=== PATIENT | female | born 1990 | race Caucasian/White ===

== ENCOUNTER 2022-08-16 19:22 | Inpatient (IN) | payer OTHER, MEDICAID, SELFPAY ==
[2022-08-16 17:43] VITALS: BMI 39.5
[2022-08-16 18:32] LABS: Hematocrit 35.7 % (37-47); Hemoglobin 11.1 g/dL (12.0-15.0); Mean Corp Hgb Conc 31.1 g/dL (32-36); Mean Corpuscular Hgb 24.9 pg (27.0-32.0); Mean Platelet Vol. 10.6 fl (6.2-12.0); Platelet Count 276 K/mm3 (150-450); RBC Distribution Width CV 15.3 % (11.6-14.6); RBC Distribution Width SD 43.8 fl (35.1-43.9); Red Blood Count 4.46 M/mm3 (4.2-5.4); White Blood Count 10.1 K/mm3 (4.4-11.0)
[2022-08-16 18:47] LABS: Protein, Urine (Random) < 6.0 mg/dL (<11.9)
[2022-08-16 18:57] LABS: AST(SGOT) 11 U/L (15-37); Alanine Aminotransfer ALT/SGPT 18 U/L (13-56); Creatinine, Serum 0.62 mg/dL (0.55-1.02); EST Glomerular Filtration Rate 119 mL/min (>60); Est Glom Filt Rate - Afr Amer 145 mL/min (>60); Estimated Creatinine Clearance 108.76 ml/min; Uric Acid 4.7 mg/dL (2.6-6.0)
--- NOTE | 2022-08-16 19:19 | PCM.HP.OB ---
HPI - General HPI Narrative MALIKA HOYOS, is a 32 F at 37.6 weeks who presents for elevated blood pressures in office today without diagnosis of hypertension. Patient denies any headache, vision changes, RUQ pain, swelling, SOB or CP. complicated by Obesity, GBS positive, RH negative, and LGA- EFW 95%. Maternal Data Information MALICK Calculator Estimated Delivery Date Method Current WG Current Estimate 08/31/22 Manual 37w 6d PFSH PFSH Home Medications vitamins-iron fumarate 65 mg iron-folic acid 1 mg tablet tab 08/16/22 [History Last Taken Unknown] ROS Eyes Eyes: Denies blurry vision, change in vision or spots in vision ENT HEENT: Denies dizziness or headache(s) Cardiovascular Cardiovascular: Denies abdominal pain, chest pain or dyspnea Respiratory/Chest Respiratory/Chest: Denies cough, dyspnea, shortness of breath at rest or shortness of breath with exertion Gastrointestinal Gastrointestinal: Denies abdominal pain, diarrhea or vomiting Genitourinary Genitourinary: Denies change in urinary stream, difficulty urinating or dysuria Musculoskeletal Musculoskeletal: Reports none Integumentary Integumentary: Denies rash Neurologic Neurologic: Denies dizziness, headache(s), memory loss or weakness Psychiatric Psychiatric: Reports none Vital Signs Vital Signs Vital Signs: Weight Weight: 223 lb 6 oz Body Mass Index (BMI) 39.5 Physical Exam Const alert, oriented x3 and no apparent distress General Appearance: cooperative Orientation / Consciousness: awake Exam Limitations: no limitations HEENT normocephalic Head and Scalp: normal to inspection Eyes General Eye: normal appearance of both eyes Neck full ROM and no lymphadenopathy Lymph Lymphatic: no lymphadenopathy noted Chest inspection of chest normal Resp normal respiratory effort, normal air movement and clear to auscultation bilaterally Effort and Inspection: able to speak in complete sentences and symmetric chest movement Cardio regular rate and regular rhythm GI normal to inspection, nondistended, normoactive bowel sounds Back/Spine normal ROM Extremity full ROM and no calf tenderness Skin no rashes or lesions noted General Skin Exam: no breakdown Neuro oriented x3 and CN's II-XII intact bilaterally Psych mental status grossly normal and thought process normal Labs Labs Labs: Hct 35.7 % (37-47) L Hgb 11.1 g/dL (12.0-15.0) L GBS positive RH negative Assessment & Plan (1) Gestational hypertension: (2) 37 weeks gestation of : (3) LGA (large for gestational age) fetus: (4) Obesity affecting : (5) Rh negative status during : PLAN: Plan Blood pressures ranging from 126/75-155/83- average 148/93 Admit for induction of labor- GHTN Activate Hypertension Protocol [facility] labs- normal CE- 0.5/50/-3 Start Cytotec 25 mcg PO every 4 hours x 6 doses EFW 95% Routine labs Start IV fluids and run per orders GBS positive-- Start PCN 5 million units IV x 1 now and continue PCN 3 million units IV every 4 hours until delivery Pain medication if indicated Dr. Gonsalves notified of admission and involved in plan of care
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
[2022-08-16 20:34] VITALS: BP 144/95; PULSE 86
[2022-08-16 21:23] VITALS: BP 131/88; PULSE 96
[2022-08-16 21:37] VITALS: TEMP 36.2
[2022-08-16 22:23] VITALS: BP 136/96; PULSE 88
[2022-08-16] MEDS: miSOPROStol 25 MCG TABLET PO (22:39)
[2022-08-16 23:36] VITALS: BP 143/91; PULSE 87
[2022-08-17] VITALS (54 sets, daily range): BP systolic 109–163; BP diastolic 61–105; PULSE 75–132; RESP 22; TEMP 36.2–38.1; O2SAT 88–100
[2022-08-17 00:37] LABS: Chlamydia Trachomatis by PCR Negative (Negative); Neisserai gonorrhoeae by PCR Negative (Negative); Probe Check PASS; Sample Adequacy Control PASS; Specimen Processing Control PASS
[2022-08-17] MEDS: miSOPROStol 25 MCG TABLET PO (02:37)
--- NOTE | 2022-08-17 07:30 | PCM.PN.BLA ---
Progress Note Patient seen at bedside. Denies feeling any contractions or pain. Received Cytotec 25 mcg PO x 2 doses. Denies any headache, vision changes or RUQ pain. Assessment & Plan Assessment/Plan (1) Obesity affecting : (2) LGA (large for gestational age) fetus: (3) 37 weeks gestation of : (4) Gestational hypertension: PLAN: Plan Attempted placement of Locke bulb without success due to -3 station CE- 3/60/-3 NST reactive Patient to eat light breakfast Start Pitocin at 2 mu/;min and increase per policy BP's stable Dr. Skaggs updated and will be assuming management of patient
[2022-08-17] MEDS: Lactated Ringers 1,000 ML 50 ML IV (08:41)
[2022-08-17] MEDS: 0.9% Saline Lock 10 ML Syringe IV (08:44)
[2022-08-17] MEDS: Oxytocin 15 Units/NS 250ml 15 UNITS/250 ML IV.SOLN 2 UNITS IV (09:11)
--- NOTE | 2022-08-17 09:17 | PN.OBGYN_ITS ---
Subjective Subjective Patient comfortable with ctxs Objective Data Objective Data Vital Signs: Vital Signs Temp Pulse BP Pulse Ox 98.1 F 88 132/89 H 99 08/17/22 09:03 08/17/22 09:02 08/17/22 09:02 08/17/22 08:49 Weight: 223 lb 6 oz Body Mass Index (BMI) 39.5 Lab / Micro Data Result Diagrams: 08/16/22 18:10 08/16/22 18:10 Labs: Laboratory Results - last 24 hr 08/16/22 18:10: WBC 10.1, RBC 4.46, Hgb 11.1 L, Hct 35.7 L, MCV 80.0 L, MCH 24.9 L, MCHC 31.1 L, RDW Std Deviation 43.8, RDW Coeff of Beni 15.3 H, Plt Count 276, MPV 10.6 08/16/22 18:10: U Random Total Protein < 6.0, Urine Creatinine 43.80, Protein/Creatinin Ratio TNP 08/16/22 18:10: Creatinine 0.62, Estim Creat Clear Calc 108.76, Est GFR (MDRD) Af Amer 145, Est GFR (MDRD) Non-Af 119, Uric Acid 4.7, AST 11 L, ALT 18 08/16/22 18:10: Blood Type A NEGATIVE, Antibody Screen Not Reportable 08/16/22 18:10: Antibody Screen NEGATIVE 08/16/22 22:10: Chlam trachomat DNA PCR Negative, N.gonorrhoeae DNA (PCR) Negati ve Physical Exam Narrative: cvx - 4.5/80/-3 NST FHR Rate Baby A Baseline: 135 Variability:: Moderate Accelerations:: 15 x 15 Decelerations:: None Uterine Activity:: Q 3 min Assessment & Plan (1) Gestational hypertension: PLAN: Plan COntinue induction with pitocin AROM clear fluid BP's overall normal
[2022-08-17] MEDS: LACTATED RINGERS 500 ML 999 ML IV ×2 (09:50→22:25)
[2022-08-17] MEDS: Ondansetron 4 MG/2 ML Vial IV ×2 (10:51→16:30)
[2022-08-17] MEDS: fentaNYL-bupivacaine (epidural) 100 ML BAG EPIDURAL ×3 (11:07→19:05)
[2022-08-17] MEDS: Penicillin G 3,000,000 Units 50 ML 100 UNITS IV ×3 (13:20→21:16)
[2022-08-17] MEDS: Lactated Ringers 1,000 ML 200 ML IV ×2 (14:33→20:06)
[2022-08-17] MEDS: fentaNYL 100 MCG/2 ML Ampul IM (16:47)
--- NOTE | 2022-08-17 21:28 | OP.PCM_ITS ---
Maternal Data Information MALICK Calculator Estimated Delivery Date Method Current WG Current Estimate 08/31/22 Manual 38w 1d Gestational age: 38&1 Details Operative Information Date of Procedure: 08/18/22 Pre-Operative Diagnosis: (1) Gestational hypertension (2) Failure to descend Post-Operative Diagnosis: Same Indications for : Failure of Descent Indications Narrative: The patient was taken to the operating room where spinal anesthesia was placed & found to be inadequate. She had already been prepped and draped in the dorsal supine position with a leftward tilt. GETA was placed before starting c- section. A Pfannenstiel skin incision was made approximately 2 cm above the symphysis pubis and carried through to the underlying fascia with the scalpel. The fascia was incised incised in the midline and extended laterally with the Car scissors. The rectus muscles were in the midline and the peritoneum was entered carefully and bluntly. The peritoneal incision was stretched and the bladder blade was inserted. Vesicouterine peritoneum was tented up, incised & then bladder flap created gently. The uterine incision was made in a low transverse fashion with the scalpel and extended superiorly and inferiorly with blunt dissection. The infant's head was brought to the incision in the flexed position and delivered without difficulty. The head was gently guided to allow delivery of the anterior and posterior shoulders. The body then delivered with fundal pressure in the standard fashion. The 3VC cord was clamped and cut in delayed fashion. The infant was handed off to the waiting chief of pediatric urology. The placenta was delivered with fundal massage and gentle traction in the standard fashion. The uterus was exteriorized and cleared of clots and debris. The uterine incision was closed with #1 Vicryl suture in a running locked fashion. Monocryl suture was used in an imbricating fashion. The incision was examined and was found to be hemostatic after placing 1 additional suture of vicryl on the right side of the incision. The uterus was returned to the abdominal cavity. After irrigating Angel was placed over the uterine incision as some areas were denuded (but hemostatic). The peritoneum was closed with vicryl suture in running fashion The rectus muscle was examined and any bleeding was Bovie cauterized. The fascia was closed with PDS suture in a running standard fashion. The subcutaneous tissue was examining and any bleeding was Bovie cauterized. The subcutaneous tissue was reapproximated with interrupted sutures. The skin was closed in a subcuticular fashion by the TEAM DRIVER while I was present in the labor & delivery unit. The remainder of the procedure was performed by me with assistance. All sponge, lap, and needle counts were correct. The patient was taken to her room for recovery in a stable condition. Classification: SUSIE Procedure Type: low transverse damaged freight inspector #1: Amita Gonzalez Type of Anesthesia: General and Spinal Antibiotic Given: Ancef 2 grams IV x1 and Zithromax 500 mg/5 mL X1 Drain: Locke to straight drain Estimated Blood Loss: 900ml Fluids Replaced: 1200ml Procedure Start Time: 00:44 Procedure Stop Time: 01:30 Findings Description of Procedure: Normal maternal uterus and adnexa Presentation: Positive for Vertex Amniotic Membrane Rupture Type: Artificial Amniotic Fluid Description: Clear Placental Delivery Description: Expressed Placenta Disposition: [facility] Cord Vessel Description: 3 Vessels Cord Entanglement: None Cord Gases: ABG and VBG Infant A Gender: Female (1 minute): 7 (5 minute): 9 Delayed Cord Clamping: No Complications Complications: None
[2022-08-17] MEDS: Acetaminophen 500 MG Tablet PO (22:58)
[2022-08-17] MEDS: Sodium Citrate/Citric Acid 30 ML UDC PO (23:24)
[2022-08-18] VITALS (22 sets, daily range): BP systolic 104–163; BP diastolic 59–100; PULSE 75–113; RESP 15–21; TEMP 36.1–37; O2SAT 95–98
[2022-08-18] MEDS: Cefazolin 2 GM in 0.9% Normal Saline 100 ML IV (00:41)
[2022-08-18] MEDS: Lactated Ringers 1,000 ML 100 ML IV (02:01)
[2022-08-18] MEDS: Oxytocin 15 Units/NS 250ml 15 UNITS/250 ML IV.SOLN 83 UNITS IV (02:10)
[2022-08-18] MEDS: Ketorolac 30 MG/ML Syringe IV ×4 (02:55→19:45)
[2022-08-18] MEDS: Acetaminophen 500 MG Tablet 1000 MG PO ×4 (05:14→22:57)
--- NOTE | 2022-08-18 07:31 | NURSING ---
bedside report given to Amari Malhotra RN who is assuming care of pt at this time
[2022-08-18] MEDS: 0.9% Saline Lock 10 ML Syringe IV ×2 (08:15→14:14)
[2022-08-18] MEDS: Enoxaparin 40 MG/0.4 ML Syringe SC (10:44)
[2022-08-18] MEDS: Senna/Docusate Sodium 1 Tablet PO (10:44)
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
--- NOTE | 2022-08-18 16:34 | PCM.PN.OB ---
Subjective Subjective Denies complaints Objective Data Objective Data Vital Signs: Vital Signs Temp Pulse Resp BP Pulse Ox O2 Del Method O2 Flow Rate 98.2 F 102 H 20 H 133/88 H 97 Room Air 2 08/18/22 13:00 08/18/22 13:00 08/18/22 13:00 08/18/22 08:30 08/18/22 13:00 08/18/22 13:00 08/18/22 07:21 Oxygen Flow Rate (L/min) 2 Oxygen Delivery Method Room Air Weight: 223 lb 6 oz Body Mass Index (BMI) 39.5 Intake & Output: Intake and Output for Last 24 Hours 08/16/22 08/17/22 08/18/22 23:59 23:59 23:59 Intake Total 4193.20 / 4193.20 2128.46 / 2128.46 Output Total 575 / 575 2935 / 2935 Balance 3618.20 / 3618.20 -806.54 / -806.54 Lab / Micro Data Result Diagrams: 08/16/22 18:10 08/16/22 18:10 Physical Exam Const alert, oriented x3 and no apparent distress HEENT normocephalic GI soft to palpation, non-tender and non-distended GI Narrative: fundus firm, mid & below umbilicus Incision - bandage c/d/i Extremity normal to inspection and no calf tenderness Assessment & Plan (1) Gestational hypertension: COMMENT: POD#0 PLAN: BP's normal at this time. Will continue to monitor (2) Delivery by section: PLAN: Heme - HDS ID - AF since delivery, monitor for signs infection GI/ - no issues Routine PP care
[2022-08-19 01:40] VITALS: RESP 16; O2SAT 96
[2022-08-19 02:10] VITALS: BP 107/72; RESP 16; TEMP 36.1; O2SAT 96
[2022-08-19 06:10] LABS: Hematocrit 25.1 % (37-47); Hemoglobin 7.7 g/dL (12.0-15.0); Mean Corp Hgb Conc 30.7 g/dL (32-36); Mean Corpuscular Hgb 24.7 pg (27.0-32.0); Mean Corpuscular Volume 80.4 fL (81-99); Mean Platelet Vol. 10.2 fl (6.2-12.0); Platelet Count 202 K/mm3 (150-450); RBC Distribution Width CV 15.8 % (11.6-14.6); RBC Distribution Width SD 45.1 fl (35.1-43.9); Red Blood Count 3.12 M/mm3 (4.2-5.4); White Blood Count 16.3 K/mm3 (4.4-11.0)
[2022-08-19 08:01] VITALS: BP 111/69; PULSE 95; RESP 16; TEMP 36.2; O2SAT 98
[2022-08-19] MEDS: Ibuprofen 600 MG Tablet PO ×2 (08:08→13:34)
[2022-08-19] MEDS: Acetaminophen 500 MG Tablet 1000 MG PO ×2 (08:08→13:33)
[2022-08-19] MEDS: Senna/Docusate Sodium 1 Tablet PO (10:10)
[2022-08-19] MEDS: Enoxaparin 40 MG/0.4 ML Syringe SC (10:11)
--- NOTE | 2022-08-19 10:27 | PCM.PN.OB ---
Subjective Subjective Denies complaints. Patient really would like to leave later today. Objective Data Objective Data Vital Signs: Vital Signs Temp Pulse Resp BP Pulse Ox O2 Del Method O2 Flow Rate 97.2 F L 95 16 111/69 98 Room Air 2 08/19/22 08:01 08/19/22 08:01 08/19/22 08:01 08/19/22 08:01 08/19/22 08:01 08/19/22 08:01 08/18/22 07:21 Oxygen Flow Rate (L/min) 2 Oxygen Delivery Method Room Air Weight: 223 lb 6 oz Body Mass Index (BMI) 39.5 Intake & Output: Intake and Output for Last 24 Hours 08/17/22 08/18/22 08/19/22 23:59 23:59 23:59 Intake Total 4193.20 / 4193.20 2128.46 / 2128.46 Output Total 575 / 575 2935 / 2935 Balance 3618.20 / 3618.20 -806.54 / -806.54 Lab / Micro Data Result Diagrams: 08/19/22 05:55 08/16/22 18:10 Labs: Laboratory Results - last 24 hr 08/19/22 05:55: WBC 16.3 H, RBC 3.12 L, Hgb 7.7 L, Hct 25.1 L, MCV 80.4 L, MCH 24.7 L, MCHC 30.7 L, RDW Std Deviation 45.1 H, RDW Coeff of Beni 15.8 H, Plt Count 202, MPV 10.2 Physical Exam Const alert, oriented x3 and no apparent distress HEENT normocephalic GI soft to palpation, non-tender and non-distended GI Narrative: fundus firm, mid & below umbilicus Incision - bandage c/d/i Extremity normal to inspection and no calf tenderness Assessment & Plan (1) Delivery by section: COMMENT: POD#1 PLAN: Routine care. Possible discharge home later today as patient very stressed about being admitted to hospital for another night. She will have her mother & sister to help at home. (2) Gestational hypertension: PLAN: BP's normal. Plan for BP check Saturday. (3) Acute blood loss anemia: PLAN: Hb 7.7 & patient asymptomatic. Will give IV iron x 1 today. Repeat CBC Saturday.
--- NOTE | 2022-08-19 10:40 | DS.PCM_ITS ---
Providers Date of Admission: 08/16/22 Date of Discharge: 08/19/22 Reason For Visit: PRIMARY C SECTION Diagnosis Discharge Diagnosis (1) Delivery by section: Status: Acute Plan: Routine care. Possible discharge home later today as patient very stressed about being admit tiffanie to hospital for another night. She will have her mother & sister to help at home. (2) Gestational hypertension: Status: Acute Code(s): O13.9 - Gestational [-induced] hypertension without significant proteinuria, unspecified trimester Plan: BP's normal. Plan for BP check Saturday. (3) Acute blood loss anemia: Status: Acute Code(s): D62 - Acute posthemorrhagic anemia Plan: Hb 7.7 & patient asymptomatic. Will give IV iron x 1 today. Repeat CBC Saturday. Medications at Discharge Home Medications vitamins-iron fumarate 65 mg iron-folic acid 1 mg tablet tab 08/16/22 acetaminophen 500 mg tablet 1,000 mg PO Q6H #0 tabs 08/19/22 ferrous sulfate 142 mg (45 mg iron) tablet,extended release (Slow Release Iron) 142 mg PO DAILY #30 tabs 08/19/22 ibuprofen 600 mg tablet 600 mg PO Q6H #0 tabs 08/19/22 Hospital Course Operations section Summary of Care Provided Hospital Course: Patient admitted for induction for gestational hypertension. She had a c- section for failure to descent. In the postoperative period she did well. She received IV for anemia prior to discharge. Physical Exam Const alert, oriented x3 and no apparent distress HEENT normocephalic GI soft to palpation, non-tender and non-distended GI Narrative: fundus firm, mid & below umbilicus Incision - bandage c/d/i Extremity normal to inspection and no calf tenderness Weight / BMI Weight Weight: 223 lb 6 oz Body Mass Index (BMI) 39.5 ABG / Lab / Microbiology Data Result Diagrams: 08/19/22 05:55 08/16/22 18:10 Laboratory: Laboratory Results - last 24 hr 08/19/22 05:55: WBC 16.3 H, RBC 3.12 L, Hgb 7.7 L, Hct 25.1 L, MCV 80.4 L, MCH 24.7 L, MCHC 30.7 L, RDW Std Deviation 45.1 H, RDW Coeff of Beni 15.8 H, Plt Count 202, MPV 10.2 D/C Instructions Discharge Diet: No restrictions Discharge Activity: May Shower May resume sexual activity in: 6 weeks Weight Bearing Status: Weight bearing as tolerated Call your doctor if your incision/area has: Continuous Slow Oozing, Sudden Increased Bleeding, Increased Pain/ Swelling, Increased Redness, Foul Smelling Discharge and Swelling at the incision site Call your doctor if you observe: Fever of 101 or Higher, Change in Color, Inability to have a bowel movement, Using more than 1 pad per hour, Shortness of breath, Dizziness, Fainting spells, Chest pain and Uncontrolled pain Suture Line Care: Avoid Pulling/Pushing and Avoid Pinching/Bending Remove Dressing in: 1 week Cleanse incision/area with: Soap & Water Please Follow Up With: Lara Skaggs MD Meaningful Use Info Meaningful Use Diagnoses (Choose all that apply): None applicable Discharge Plan Admission Admit Date/Time: 08/16/22 19:22 Primary Reason for Your Visit: section Attending Provider: Liss Hackett Discharge Orders/Prescriptions Prescriptions: New acetaminophen 500 mg Tablet 1,000 mg PO Q6H Qty: 0 0RF ibuprofen 600 mg Tablet 600 mg PO Q6H Qty: 0 0RF Slow Release Iron 142 mg (45 mg iron) tablet extended release 142 mg PO DAILY Qty: 30 1RF Continued vit-iron fum-folic ac 65 mg iron- 1 mg Tablet Disposition Disposition (needs filled in before D/C Order can be placed): Home, Self Care
[2022-08-19] MEDS: 0.9% Saline Lock 10 ML Syringe IV ×2 (13:34→14:37)
[2022-08-19 14:05] VITALS: BP 125/88; PULSE 98; RESP 16; TEMP 36.4; O2SAT 100
== END 2022-08-19 18:40 | disposition home or self-care (01) | DRG 787 ==
LOC: WPOUT 19:29 → WP 19:29
PROVIDERS: Obstetrics & Gynecology; Admitting Provider Advanced Practice Midwife; Visit Provider Advanced Practice Midwife
DX: O13.4 Gestational [pregnancy-induced] hypertension without significant proteinuria, complicating childbirth (principal); D62 Acute posthemorrhagic anemia; O90.81 Anemia of the puerperium; O62.1 Secondary uterine inertia; O36.63X0 Maternal care for excessive fetal growth, third trimester, not applicable or unspecified; O99.824 Streptococcus B carrier state complicating childbirth; O99.214 Obesity complicating childbirth; E66.9 Obesity, unspecified; Z3A.37 37 weeks gestation of pregnancy; Z37.0 Single live birth
CPT/HCPCS: 59025; 59050; 76815; 82565; 82570; 84156; 84450; 84460; 84550; 85027; 86850; 86900; 86901; 87491; 87591; 99221; 99252; J1756; J7120; A4216; G0378; G0463; J2405